=== PATIENT | female | born 1950 | race Two or more races ===

== ENCOUNTER 2019-06-20 07:19 | Emergency (ER) | payer MEDICARE, OTHER ==
--- NOTE | 2019-06-20 09:22 | RADIOLOGY REPORT (SQ) ---
EXAM DESCRIPTION: CHEST 2 VIEWS COMPLETED DATE/TIME: 06/20/2019 8:44 am REASON FOR STUDY: chest pain COMPARISON: None. EXAM PARAMETERS: NUMBER OF VIEWS: two views TECHNIQUE: Digital Frontal and Lateral radiographic views of the chest acquired. RADIATION DOSE: NA LIMITATIONS: none FINDINGS: LUNGS AND PLEURA: No opacities, masses or pneumothorax. No pleural effusion. MEDIASTINUM AND HILAR STRUCTURES: No masses or contour abnormalities. HEART AND VASCULAR STRUCTURES: Heart normal size. No evidence for failure. BONES: No acute findings. HARDWARE: None in the chest. OTHER: No other significant finding. IMPRESSION: NO ACUTE RADIOGRAPHIC FINDING IN THE CHEST. TECHNICAL DOCUMENTATION: JOB ID: [id number] [employer]- All Rights Reserved Reading location - IP/workstation name: [email or web address]
[2019-06-20 10:02] LABS: TROPONIN I < 0.012 ng/mL
[2019-06-20 10:58] LABS: HEMATOCRIT 39.5 % (36.0-47.0); HEMOGLOBIN 13.2 g/dL (12.0-15.5); MEAN CORPUSCULAR HEMOGLOBIN 29.2 pg (27.0-33.4); MEAN CORPUSCULAR HGB CONC 33.5 g/dL (32.0-36.0); MEAN CORPUSCULAR VOLUME 87 fl (80-97); PLATELET COUNT 254 10^3/uL (150-450); RED BLOOD COUNT 4.54 10^6/uL (3.72-5.28); RED CELL DISTRIBUTION WIDTH 13.5 % (11.5-14.0); WHITE BLOOD COUNT 16.3 10^3/uL (4.0-10.5)
[2019-06-20] MEDS ORDERED: ASPIRIN 81 MG TABLET, CHEWABLE PO ONE (11:00)
[2019-06-20] MEDS ORDERED: METHYLPREDNISOLONE INJ 125 MG/2 ML SDV IV ONE (11:00)
[2019-06-20] MEDS ORDERED: IPRATROPIUM/ALBUTEROL 0.5-2.5 MG/3 ML AMPUL NEB ONE (11:01)
--- NOTE | 2019-06-20 11:09 | ER Document Report ---
ED General - General Chief Complaint: Chest Wall Pain Stated Complaint: CHEST PAIN,COUGH Time Seen by Provider: 06/20/19 10:39 TRAVEL OUTSIDE OF THE [place] IN LAST 30 DAYS: No - HPI Notes: This is a 69-year-old female presenting with a chief complaint of left chest pain that she states radiates to her back. Patient states she is had episodes of chest pain like this in the past usually about 3 times a month. Patient's past medical history is significant for diabetes, hypertension, tobacco smoking. Patient states her chest pain symptoms started last night after going out into the cold night air. Patient states this was around 0 to 30 hours. Patient states she has sublingual nitroglycerin at home but did not take any of them. Patient's family is in the room patient spouse states that usually when she has this chest pain he massages the chest muscle and it tends to go away. Pain is exacerbated with cough or deep breath. Nothing seems to alleviate the factors. Differential diagnosis: Cardiac chest pain, noncardiac chest pain, COPD exacerbation, pancreatitis, anxiety, bronchitis, pneumonia, influenza - Related Data Allergies/Adverse Reactions: Penicillins Adverse Reaction (Verified 06/20/19 08:07) Past Medical History - Social History Smoking Status: Current Every Day Smoker Chew tobacco use (# tins/day): No Frequency of alcohol use: Occasional Drug Abuse: None Family History: Reviewed & Not Pertinent Patient has suicidal ideation: No Patient has homicidal ideation: No Physical Exam - Vital signs Vitals: Temp Pulse Resp BP Pulse Ox 99.0 F 92 24 H 135/67 H 90 L 06/20/19 07:28 06/20/19 07:28 06/20/19 07:28 06/20/19 07:28 06/20/19 07:28 Course - Re-evaluation Re-evalutation: 06/20/19 14:08 Patient is sitting up in bed eating pecan pie, appears to be in no apparent distress. Patient states her symptoms have resolved since receiving the aerosolized neb ulizer treatment. Patient denies chest pain or pressure at this time. Symptoms seem most consistent with acute bronchitis with concomitant tobacco abuse. Second troponin is negative. Results of ED MSE discussed with patient and patient's family. All questions were answered prior to discharge. When the patient and patient's family were asked if there questions and everything about their ED visit was explained to them in a way they could understand, they all answered in the affirmative. Emergency signs and symptoms, reasons to return to the ED discussed with patient and patient's family. 06/20/19 14:20 - Vital Signs Vital signs: Temp Pulse Resp BP Pulse Ox 97.8 F 89 22 H 124/77 96 06/20/19 14:57 06/20/19 14:57 06/20/19 14:57 06/20/19 14:57 06/20/19 14:57 - Laboratory Result Diagrams: 06/20/19 09:20 06/20/19 09:20 Laboratory results interpreted by me: 06/20/19 06/20/19 06/20/19 09:20 09:20 09:20 WBC 16.3 H Seg Neuts % (Manual) 88 H Band Neutrophils % 1 L Lymphocytes % (Manual) 2 L Abs Neuts (Manual) 14.5 H Glucose 165 H Creatine Kinase 182 H 06/20/19 12:50 WBC Seg Neuts % (Manual) Band Neutrophils % Lymphocytes % (Manual) Abs Neuts (Manual) Glucose Creatine Kinase 155 H - Diagnostic Test Radiology reviewed: Reports reviewed - EKG Interpretation by Me Additional EKG results interpreted by me: 06/20/19 11:09 EKG performed on 06/20/2019 at 726 hours was interpreted by this MD. Findings: Normal sinus rhythm, left anterior fascicular block is present, rate is 94, normal axis, P waves preceding QRS complexes, QRS complexes are narrow, there are no apparent ST segment patterns of elevation or depression to suggest acute myocardial ischemia or infarction. Impression normal sinus rhythm with nonspecific ST segments. Discharge - Discharge Clinical Impression: Tobacco abuse disorder Acute bronchitis Qualifiers: Bronchitis organism: unspecified organism Qualified Code(s): J20.9 - Acute bronchitis, unspecified Clinical Impression: (Ruled Out): Acute bronchitis and bronchiolitis Condition: Good Disposition: HOME, SELF-CARE Additional Instructions: Return to the Emergency Department without delay if any worse. HOME CARE INSTRUCTIONS & INFORMATION: Thank you for choosing us for your medical needs. We hope you're satisfied with the care you received. After you leave, you must properly care for your problem and, at the same time, observe its progress. Any condition can change. Some illnesses can change rapidly over hours or days. If your condition worsens, return to the Emergency Department or see your physician promptly. ABOUT YOUR X-RAYS AND EKG'S: If you had an EKG or X-rays taken, they have been read by the Emergency Physician. The X-rays and EKG's will also be read by a Radiologist or Dolly Operator within 24 hours. If discrepancies are noted, you will be notified by telephone. Please be certain the ED has a correct telephone number & address where you can be reached. Also, realize that some fractures or abnormalities do not show up on initial X-rays. If your symptoms continue, see your physician. ABOUT YOUR LABORATORY TEST: If you had laboratory tests, the results have been reviewed by the Emergency Physician. Some test results (for example cultures) may not be available for several days. You will be contacted if any test result shows you need additional treatment. Please be certain the ED has a correct telephone number and address where you can be reached. ABOUT YOUR MEDICATIONS: You will receive instructions on how to take your medicine on the prescription label you receive. Additional information may be provided by the Pharmacy. If you have questions afterwards, call the ED for clarification or further instructions. Some prescribed medications may cause drowsiness. Do not perform tasks such as driving a car or operating machinery without consulting your Pharmacist. If you feel you need a refill of pain medication, your condition will need re-evaluation. Please do not call for a refill of any medication. ABOUT YOUR SIGNATURE: Signature of this document acknowledges to followin. Understanding that you received emergency treatment and that you may be r eleased before al medical problems are known or treated. Please be certain the ED has a correct phone number & address where you can be reached. 2. Acknowledgement that you will arrange for follow-up care as recommended. 3. Authorization for the Emergency Physician to provide information to your follow-up Physician in order to maximize your care. AT ANY TIME, IF YOUR SYMPTOMS CHANGE SIGNIFICANTLY OR WORSEN OR YOU DEVELOP NEW SYMPTOMS, RETURN TO THE EMERGENCY DEPARTMENT IMMEDIATELY FOR RE-EVALUATION. OUR GOAL IS TO PROVIDE EXCELLENT MEDICAL CARE! WE HOPE THAT WE HAVE MET YOUR EXPECTATIONS DURING YOUR EMERGENCY DEPARTMENT VISIT AND THAT YOU FEEL YOU HAVE RECEIVED EXCELLENT CARE! Bronchitis You have acute bronchitis. This disease is an infection or inflammation of the air passageways in your lungs. Symptoms usually include cough, low grade fever, shortness of breath, and wheezing. The cough usually persists for a couple of weeks. Most cases of bronchitis get better without antibiotics. We prescribe antibiotics when we believe bacteria are damaging your airways, or if there's high risk the bronchitis will worsen into pneumonia. Increase your fluid intake. A cool mist humidifier may make your lungs more comfortable. An expectorant (cough medicine that loosens phlegm) can help. If you smoke, STOP!!! Recovery from bronchitis can be somewhat slow, but you should see improvement within a day or two. Repeated episodes of bronchitis may result in lung damage -- for example, chronic bronchitis, recurrent pneumonias, or emphysema. Call the doctor if you develop increasing fever, shortness of breath, chest pain, bloody sputum, or otherwise worsen. If you have not improved at all after several days, contact the physician. Stop Smoking You should stop smoking. The tar and chemicals in cigarette smoke are harmful. Smoking has been shown to cause: Emphysema and chronic bronchitis Lung cancer Cancer of the mouth, larynx, stomach, and pancreas Heart disease and stroke Stillbirths and miscarriage Premature aging In addition, smoking increases the chances of respiratory infections and ear infections in children of smokers, and increases the risk of cancer in persons exposed to second-hand smoke. Classes are available to help you stop smoking. If you are serious about wanting to quit, we can help arrange this therapy for you, or you can contact the local lung or cancer association. Prescriptions: Ipratropium/Albuterol Sulfate [Combivent Inhaler] 14.7 gm IH QID #1 aer.w.adap Methylprednisolone [Medrol Dosepack (4 mg/Tab) 21 Tab/Dosepak] 4 mg PO ASDIR PRN #21 tab.ds.pk PRN Reason:
[2019-06-20 11:12] LABS: ALBUMIN 4.6 g/dL (3.5-5.0); ALKALINE PHOSPHATASE 118 U/L (38-126); ANION GAP 14 (5-19); ASPARTATE AMINO TRANSFERASE 23 U/L (14-36); BILIRUBIN,DIRECT 0.1 mg/dL (0.0-0.4); BILIRUBIN,TOTAL 0.5 mg/dL (0.2-1.3); BLOOD UREA NITROGEN 15 mg/dL (7-20); CALCIUM 10.1 mg/dL (8.4-10.2); CARBON DIOXIDE 26 mmol/L (22-30); CHLORIDE 101 mmol/L (98-107); GLUCOSE 165 mg/dL (75-110); POTASSIUM 4.1 mmol/L (3.6-5.0); TOTAL PROTEIN 7.9 g/dL (6.3-8.2)
[2019-06-20 11:19] LABS: ABSOLUTE LYMPHOCYTES# (MANUAL) 1.1 10^3/uL (0.5-4.7); ABSOLUTE MONOCYTES # (MANUAL) 0.7 10^3/uL (0.1-1.4); BAND NEUTROPHILS % (MANUAL) 1 % (3-5); BASOPHILS % (MANUAL) 0 % (0-2); EOSINOPHILS % (MANUAL) 0 % (0-6); LYMPHOCYTES % (MANUAL) 2 % (13-45); MONOCYTES % (MANUAL) 4 % (3-13); SEGMENTED NEUTROPHILS % (MAN) 88 % (42-78); TOTAL CELLS COUNTED 100
[2019-06-20 11:20] LABS: PLATELET COMMENT ADEQUATE; RBC MORPHOLOGY COMMENT NORMO-CYTIC/CHROMIC; TOXIC GRANULATION SLIGHT
[2019-06-20 12:26] LABS: A TYPE INFLUENZA AG NEGATIVE (NEGATIVE); B INFLUENZA AG NEGATIVE (NEGATIVE)
[2019-06-20 14:57] VITALS: BP 124/77
--- NOTE | 2019-06-20 20:13 | EKG REPORT ---
SEVERITY:- ABNORMAL ECG - SINUS RHYTHM LEFT ANTERIOR FASCICULAR BLOCK : Confirmed by: Shama Corrigan MD 20-Jun-2019 20:11:45
== END 2019-06-20 14:57 | disposition home or self-care (01) ==
LOC: ER 07:19
DX: F17.200 Nicotine dependence, unspecified, uncomplicated (principal); R07.9 Chest pain, unspecified; E11.9 Type 2 diabetes mellitus without complications; I44.4 Left anterior fascicular block; I10 Essential (primary) hypertension
CPT/HCPCS: 93005; 94640; 99285; 96374; 36415; 82553; 82550; 83690; 85025; 80053; 84484; 87804; 71046; 93010; A9270 ×2; J2930; J7620